=== PATIENT | male | born 1980 | race Caucasian/White ===

== ENCOUNTER 2017-02-09 19:40 | Emergency (ER) | payer MEDICAID ==
[~2017-02-09] VITALS: Ht 165.1 cm; Wt 90.0 kg
[2017-02-09 19:41] VITALS: BP 142/89; PULSE 84; RESP 16; TEMP 98.9; O2SAT 98
--- NOTE | 2017-02-09 20:23 | RADRPT ---
EXAM DATE/TIME: 02/09/2017 20:08 [place] COMPARISON: No previous studies available for comparison. INDICATIONS : Pain from flexing motion. MEDICAL HISTORY : None. SURGICAL HISTORY : None. ENCOUNTER: Initial ACUITY: 1 day PAIN SCORE: 4/10 LOCATION: Right third digit. FINDINGS: Three views the right hand demonstrate no fracture or dislocation. Mineralization is within normal li mits and there is no significant arthropathy. No soft tissue abnormality or radiopaque foreign body i s identified. There is flexion at the third digit DIP joint. There is a lucent area in the third meta carpal head. CONCLUSION: No acute finding is identified. Pepe Sandy MD on February 09, 2017 at 20:20 Board Certified Radiologist. This report was verified electronically.
[2017-02-09] MEDS ORDERED: IBUP800T23 PO (20:51)
--- NOTE | 2017-02-09 20:52 | PD ---
HPI Chief Complaint: Injury Time Seen by Provider: 20:44 Travel History International Travel<30 days: No Contact w/Intl Traveler<30days: No Traveled to known affect area: No History of Present Illness HPI Patient is a 36-year-old male presented to the emergency room for evaluation of right third finger pain. Patient states he was scrubbing dried cheese off of a seat at the movie theater with his finger and then backwards, patient felt as if he had dislocated the joint. Patient reports his pain is a 5 out of 10 and describes it as sore. He has no other complaints at this time. He does state that he cannot fully extend his right third finger from the DIP joint. PFSH Past Medical History Medical History: Denies Significant Hx Social History Alcohol Use: No Tobacco Use: No Substance Use: No Allergies-Medications (Allergen,Severity, Reaction): Coded Allergies: No Known Allergies (Unverified , 02/09/17) Review of Systems Except as stated in HPI: all other systems reviewed are Neg Musculoskeletal: Positive: Arthralgias, Limited ROM Physical Exam Narrative GENERAL: Well-nourished, well-developed patient. SKIN: Focused skin assessment warm/dry. HEAD: Normocephalic. EYES: No scleral icterus. No injection or drainage. NECK: Supple, trachea midline. No JVD or lymphadenopathy. CARDIOVASCULAR: Regular rate and rhythm without murmurs, gallops, or rubs. RESPIRATORY: Breath sounds equal bilaterally. No accessory muscle use. GASTROINTESTINAL: Abdomen soft, non-tender, nondistended. MUSCULOSKELETAL: No cyanosis, or edema. Patient cannot actively extend his right third finger at the DIP joint. Full muscle strength against resistance with flexion. Positive radial pulse, brisk less than 3 second capillary refill , no obvious deformities noted otherwise. BACK: Nontender without obvious deformity. No CVA tenderness. Data Data Last Documented VS Vital Signs Date Time Temp Pulse Resp B/P Pulse Ox O2 Delivery O2 Flow Rate FiO2 02/09/17 19:41 98.9 84 16 142/89 98 Room Air Orders Hand, Complete ([id number]) (02/09/17 ) [facility] Medical Decision Making Medical Screen Exam Complete: Yes Emergency Medical Condition: Yes Interpretation(s) Last Impressions Hand X-Ray 02/09/17 0000 Signed Impressions: Service Date/Time: Thursday, February 09, 2017 20:08 - CONCLUSION: No acute finding is identified. Pepe Sandy MD Vital Signs Date Time Temp Pulse Resp B/P Pulse Ox O2 Delivery O2 Flow Rate FiO2 02/09/17 19:41 98.9 84 16 142/89 98 Room Air Differential Diagnosis Fracture versus sprain versus strain versus dislocation versus other Narrative Course Patient's 36-year-old male presenting with right third finger pain. Patient is neurovascularly intact. Imaging is negative for acute abnormality. Patient will be placed in a finger splint at this time, he will be referred to hand surgeon for further evaluation and management as outpatient for further evaluation for possible tendon injury. Patient verbalized understanding of instructions. Patient is stable for discharge. Diagnosis Primary Impression: Sprain, finger Qualified Code: S63.612A - Sprain of right middle finger, unspecified site of finger, initial encounter Referrals: Paulo Capone III, MD Hand Surgeon Patient Instructions: Finger Sprain (ED), General Instructions Additional Instructions: Follow-up with her primary doctor Follow-up with hand surgeon Take medications as directed Return to emergency department for any new or worsening symptoms Keep finger splint on for comfort and to stabilize finger and until evaluated by a surgeon. Med/Other Pt SpecificInfo: Prescription(s) given Scripts Ibuprofen 800 Mg [id number] Mg PO Q6HR PRN (PAIN) #40 TAB Ref 0 Prov:Carolyn Rhodes 02/09/17 Disposition: 01 DISCHARGE HOME Condition: Stable Carolyn Rhodes Feb 09, 2017 20:52
== END 2017-02-09 21:15 | disposition home or self-care (01) ==
LOC: NEPD 19:40
DX: S63.612A Unspecified sprain of right middle finger, initial encounter (principal); X50.1XXA Overexertion from prolonged static or awkward postures, initial encounter; Y92.254 Theater (live) as the place of occurrence of the external cause; Y99.0 Civilian activity done for income or pay
CPT/HCPCS: 29130; 73130